=== PATIENT | female | born 1985 | race Caucasian/White ===

== ENCOUNTER 2018-01-03 21:07 | Inpatient (IN) | payer OTHER ==
[~2018-01-03] VITALS: Ht 160 cm; Wt 81.6 kg
[~2018-01-03 21:07] MED LIST: DICLEGIS DR 101 EACH PO; KEFLEX500 M1 PO
[2018-01-03 22:33] LABS: ABSOLUTE BASOPHIL COUNT 0.1 /CUMM (0.0-0.2); ABSOLUTE EOSINOPHIL COUNT 0.1 /CUMM (0.0-0.7); ABSOLUTE LYMPH COUNT 2.4 /CUMM (1.2-3.4); ABSOLUTE MONOCYTE COUNT 0.7 /CUMM (0.10-0.60); BASOPHIL % 0.5 % (0.0-2.0); EOSINOPHIL % 0.5 % (0-5); GRANULOCYTE % 71.3 % (42.2-75.2); HEMATOCRIT 39.1 % (37-47); MEAN CORPUSCULAR HGB 28.4 PG (27.0-31.0); MEAN CORPUSCULAR VOLUME 86.1 FL (81.0-99.0); RBC DISTRIBUTION WIDTH 13.9 % (11.5-14.5); RED BLOOD CELL CT 4.55 /CUMM (4.20-5.40); WHITE BLOOD CELL COUNT 11.2 /CUMM (4.8-10.8)
[2018-01-03 22:50] VITALS: BP 135/84
[2018-01-03 23:04] LABS: PLATELET COUNT 144 /CUMM (130-400)
--- NOTE | 2018-01-04 07:00 | History & Physical ---
General Information and HPI MD Statement: I have seen and personally examined YAZ MERE GILBERT and documented this H&P. The patient is a 32 year old female at 41 weeks and 3 days gestation who presented with a chief complaint of labor pains.. Source of Information: patient, old records Exam Limitations: no limitations History of Present Illness: Pt well known to OB group approching postdates scheduled for induction Monday who presented with labor pains at 3-4 cm no ROM or VB with good FM. 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 History : 1 Para: 0 Last Menstrual Period: 03/13/2017 Estimated Delivery Date: 12/25/2017 Past yarn examiner skeins History: none Medical History Neurological: NONE EENT: NONE Cardiovascular: NONE Respiratory: NONE Gastrointestinal: NONE Hepatic: NONE Renal: NONE Musculoskeletal: NONE Psychiatric: NONE Endocrine: NONE Blood Disorders: NONE Cancer(s): NONE SHIP'S MASTER/Reproductive: NONE Surgical History Pertinent Surgical History: non-contributory Past Family/Social History Psychosocial History Smoking Status: Never Smoked Review of Systems Review of Systems Constitutional: Denies: chills, fever. EENTM: Denies: blurred vision, double vision, visual changes. Respiratory: Denies: cough. GI: Denies: diarrhea, nausea, vomiting. Neurological/Psychological: Denies: anxiety, depressed. Exam & Diagnostic Data Last 24 Hrs of Vital Signs/I&O vss Vital Signs Date Time Temp Pulse Resp B/P B/P Pulse O2 O2 Flow FiO2 Mean Ox Delivery Rate 01/03 2250 135/84 Intake & Output 01/04 0800 01/04 0000 01/03 1600 Intake Total Output Total Balance Patient 180 lb Weight Obstetric Exam Wgt Gained During : 45 lbs Pelvimetry: seems adequate Dilation (cm): 7 Effacement (%): 90 Station: -1 Membranes: intact Fluid: unknown Fundal Height (cm): 40 Multiple Gestation? No Contractions: Q3-5 min Infant #1 - FHR Baseline: 145 Category: 1 Estimated Weight: 3800g Presentation: vtx Patient for Induction? No Physical Exam General Appearance Alert, Oriented X3, Cooperative, Mild Distress Skin No Rashes HEENT Atraumatic Neck Supple Cardiovascular Regular Rate Lungs Clear to Auscultation Abdomen Soft Neurological Normal Speech, Normal Tone Labs Blood Type & Rh: A pos Antibody Screen: neg Hct/Hgb & Platelets #1: 41/13.6/198 Hct/Hgb & Platelets #2: 35.1/11.4/168 Rubella: imm VDRL #1: nr VDRL #2: nr HbsAg: neg HIV #1: nr HIV #2 nr 1 Hr P Group B Strep: neg Initial Ultrasound: 05/22/17 8w 4d Anatomy Ultrasound: 08/09/17 normal Ultrasound for EFW: 2800g at 36 weeks Genetic Testing: CF neg Last 24 Hrs of Labs/Dom: Laboratory Tests 01/03/18 2230: Urinalysis MANY H, Urine Color YEL, Urine Clarity HAZY H, Urine pH 6.0, Ur Specific [place] 1.025, Urine Protein 30 H, Urine Ketones TRACE H, Urine Nitrite NEG, Urine Bilirubin NEG, Urine Urobilinogen 0.2, Ur Leukocyte Esterase NEG, Ur Microscopic SEDIMENT EXAMINED, Urine WBC RARE, Ur Epithelial Cells PACKD H, Urine Bacteria FEW H, Urine Mucus MANY H, Urine Hemoglobin NEG, Urine Glucose NEG 01/03/18 2215: CBC w Diff NO MAN DIFF REQ, RBC 4.55, MCV 86.1, MCH 28.4, MCHC 33.0, RDW 13.9, MPV 11.0 H, Gran % 71.3, Lymphocytes % 21.5, Monocytes % 6.2, Eosinophils % 0.5 , Basophils % 0.5, Absolute Granulocytes 8.0 H, Absolute Lymphocytes 2.4, Absolute Monocytes 0.7 H, Absolute Eosinophils 0.1, Absolute Basophils 0.1 Microbiology 01/04 0200 URINE ROUT: Urine Culture - RECD Assessment/Plan Assessment/Plan: IUP at 41 plus active labor dilated to 7-8 cm on own now no dilation for several hours will start pitocin. As Ranked By This Provider Problem List: 1. Core Measures Venous Thromboembolism VTE Risk Factors / No Mechanical VTE Prophylaxis d/t LowRisk-No Interven Req'd No VTE Pharm Prophylaxis d/t LowRisk-No Interven Req'd Attending MD Review Statement Attending Statement Attending MD Statement: examined this patient, discussed with family, discussed w/nursing
--- NOTE | 2018-01-04 13:57 | Labor & Delivery Summary ---
Delivery Summary Vaginal Delivery: Vaginal: spontaneous Episiotomy/Lacerations: Episiotomy/Lacerations: lacerations Type: 2nd deg, b/l sulcal, right labial Repair: 2-0 and 3-0 jaye Anesthesia: epidural Placenta: Placenta: spontanteous, normal, 3 vessel Anesthesia: block Cord PH Value: a - 7.15, v - 7.21 Baby's Weight: 8# 10 Apgars - 1 Min: 9 Apgars - 5 Min: 9 Additional Comments: Pt FD / +2 and pushing with epidural. Light meconiun noted at srom, peds present for delivery. Controlled of live male, apg 9/9, wt 8#10. Head del from SHEY. No nuchal cord. Body delivered w/o difficulty. Spontaneous cry noted. Baby to mom's chest w/ RN. Mouth and nose bulb suctioned. Cord clamped and cut. Cord gases sent. 3vc plac del spont intact. Fundus contracted. B/L sulcal, right labial and perineal lacs repaired usual fashion. Pt tolerated well. EBL 500cc. Good hemostasis.
[2018-01-05 08:54] LABS: ABSOLUTE BASOPHIL COUNT 0 /CUMM (0.0-0.2); ABSOLUTE EOSINOPHIL COUNT 0.1 /CUMM (0.0-0.7); ABSOLUTE GRANULOCYTE CT 9.7 /CUMM (1.4-6.5); ABSOLUTE LYMPH COUNT 2.8 /CUMM (1.2-3.4); ABSOLUTE MONOCYTE COUNT 0.9 /CUMM (0.10-0.60); BASOPHIL % 0.3 % (0.0-2.0); EOSINOPHIL % 0.6 % (0-5); GRANULOCYTE % 72.1 % (42.2-75.2); MEAN CORPUSCULAR HGB 28.7 PG (27.0-31.0); MEAN CORPUSCULAR HGB CONC 33.3 G/DL (33.0-37.0); MEAN CORPUSCULAR VOLUME 86.2 FL (81.0-99.0); MEAN PLATELET VOLUME 10.5 FL (7.4-10.4); PLATELET COUNT 121 /CUMM (130-400); RBC DISTRIBUTION WIDTH 14.3 % (11.5-14.5); RED BLOOD CELL CT 3.85 /CUMM (4.20-5.40); WHITE BLOOD CELL COUNT 13.5 /CUMM (4.8-10.8)
[2018-01-05 09:39] LABS: HEMATOCRIT 33.2 % (37-47)
--- NOTE | 2018-01-06 09:45 | PN- Post Delivery/GYN ---
Subjective Subjective: feeling well Review of Systems Constitutional: Reports: no symptoms. Denies: chills, fever. EENTM: Denies: blurred vision, double vision, visual changes. Cardiovascular: Denies: edema. Respiratory: Denies: short of breath. Gastrointestinal: Denies: diarrhea, nausea, vomiting. Neurological/Psychological: Denies: anxiety, depressed. Objective Last 24 Hrs of Vital Signs/I&O vss Physical Exam General Appearance Alert, Oriented X3, Cooperative, No Acute Distress Cardiovascular Regular Rate Lungs Clear to Auscultation Abdomen Soft Pelvic (FEMALE) lochia serosanganous Current Medications: Current Medications Sig/Bryan Start time Last Medication Dose Route Stop Time Status Admin Acetaminophen 650 MG Q4P PRN 01/04 1330 AC PO Docusate Sodium 100 MG .STK-MED ONE 01/06 0030 DC PO 01/06 0031 Docusate Sodium 100 MG BID PRN 01/04 1330 AC 01/06 PO 0031 Ibuprofen 800 MG .STK-MED ONE 01/06 0028 DC PO 01/06 0029 Ibuprofen 800 MG .STK-MED ONE 01/05 1725 DC PO 01/05 1726 Ibuprofen 800 MG .STK-MED ONE 01/05 1129 DC PO 01/05 1130 Ibuprofen 800 MG Q6P PRN 01/04 1330 AC 01/06 PO 0729 Lactated Ringer's 1,000 ML Q8H 01/04 0700 AC 01/04 IV 0650 Magnesium Hydroxide 30 ML DAILY PRN 01/04 1330 AC PO Multivitamins 1 TAB DAILY 01/05 0900 AC PO Oxycodone/ 1 TAB Q3P PRN 01/04 1330 AC Acetaminophen PO Assessment/Plan Assessment/Plan PPD #2 vssw afebrile plan d/c home Problem List: 1. Attending MD Review Statement Attending Statement Attending MD Statement: examined this patient, discussed with family, discussed with nursing
[2018-01-06] MEDS ORDERED: IBUPROFEN800 M1 PO (09:51)
== END 2018-01-06 12:00 | DRG 775 ==
LOC: CBCO 21:07 → GNO 21:20
PROVIDERS: Obstetrics & Gynecology
PROC: 10E0XZZ Delivery of Products of Conception, External Approach (ICD-10-PCS; principal; 2018-01-04)
PROC: 0KQM0ZZ Repair Perineum Muscle, Open Approach (ICD-10-PCS; principal; 2018-01-04)
PROC: 0UQMXZZ Repair Vulva, External Approach (ICD-10-PCS; principal; 2018-01-04)
DX: O48.0 Post-term pregnancy (principal); O70.1 Second degree perineal laceration during delivery; J45.909 Unspecified asthma, uncomplicated; Z3A.41 41 weeks gestation of pregnancy; Z37.0 Single live birth; O99.52 Diseases of the respiratory system complicating childbirth; O99.62 Diseases of the digestive system complicating childbirth; K21.9 Gastro-esophageal reflux disease without esophagitis; Z88.0 Allergy status to penicillin; Z88.8 Allergy status to other drugs, medicaments and biological substances
CPT/HCPCS: GNOP; GNOS; 81001; 87086; J7120